=== PATIENT | male | born 1950 | race Two or more races ===

== ENCOUNTER 2019-10-10 13:19 | Emergency (ER) | payer OTHER ==
[~2019-10-10] VITALS: Ht 172.7 cm; Wt 61.2 kg
[2019-10-10] MEDS ORDERED: ATACAND16 MG (13:26)
[2019-10-10] MEDS ORDERED: NORVASC5 MG (13:26)
== END 2019-10-10 18:22 | disposition home or self-care (01) ==
LOC: ER 13:19
DX: M12.561 Traumatic arthropathy, right knee (principal)